=== PATIENT | male | born 1970 | race African-American/Black ===

== ENCOUNTER 2019-02-13 12:52 | Emergency (ER) | payer SELFPAY ==
--- NOTE | 2019-02-13 13:59 | ER Document Report ---
ED Medical Screen (RME) - General Chief Complaint: Abdominal Pain Stated Complaint: WEAKNESS Time Seen by Provider: 02/13/19 13:51 - HPI Notes: 02/13/19 13:57 Patient is a 48-year-old male with a history of diabetes, hypertension who presents complaining of right mid abdominal pain is been present for the past couple days but does not radiate. The pain is more dull in nature. Patient states that he has had a little frontal headache as well recently. Patient states that he has been able to eat and drink without difficulty, but does have occasional nausea without vomiting. He is urinating normally. Patient does report having one red bloody stool on Wednesday, but has not had a bowel movement since then. Patient states that this has happened previously and he has had multiple colonoscopies without any diagnosis. Last colonoscopy was 3 to 4 years ago. He was seen at another hospital in [place] yesterday, but they just performed a urine test on him and sent him home with nausea medicine as well as pain medicine. Denies TRAMMELL, fever, neck pain, URI, CP, SOB, dysuria, back pain, or rash. I have treated and performed a rapid initial assessment of this patient. A comprehensive ED assessment and evaluation of the patient, analysis of test results and completion of medical decision making process will be conducted by additional ED providers. PHYSICAL EXAMINATION: GENERAL: Well-appearing, well-nourished and in no acute distress. A&Ox4. Answers questions appropriately. LUNGS: Breath sounds clear to auscultation bilaterally and equal. No wheezes rales or rhonchi. HEART: Regular rate and rhythm without murmurs, rubs, gallops. ABDOMEN: Soft, nondistended abdomen. No guarding, no rebound. Normal bowel sounds present. No CVA tenderness bilaterally. Grossly nontender tenderness (cannot elicit thorough abd exam w/o bed, however). - Related Data Allergies/Adverse Reactions: No Known Allergies Allergy (Unverified 02/13/19 13:08) Past Medical History - Social History Chew tobacco use (# tins/day): No Frequency of alcohol use: None Drug Abuse: None Renal/ Medical History: Denies: Hx Peritoneal Dialysis Physical Exam - Vital signs Vitals: Temp Pulse Resp BP Pulse Ox 98.2 F 97 16 141/88 H 95 02/13/19 13:16 02/13/19 13:16 02/13/19 13:16 02/13/19 13:16 02/13/19 13:16 Course - Vital Signs Vital signs: Temp Pulse Resp BP Pulse Ox 98.2 F 97 16 141/88 H 95 02/13/19 13:16 02/13/19 13:16 02/13/19 13:16 02/13/19 13:16 02/13/19 13:16
[2019-02-13 14:48] LABS: ABSOLUTE BASOPHILS # (AUTO) 0.1 10^3/uL (0.0-0.2); ABSOLUTE EOSINOPHILS # (AUTO) 0.2 10^3/uL (0.0-0.6); ABSOLUTE LYMPHOCYTES (AUTO) 2.7 10^3/uL (0.5-4.7); ABSOLUTE MONOCYTES (AUTO) 0.5 10^3/uL (0.1-1.4); ABSOLUTE NEUT (AUTO) 5.7 10^3/uL (1.7-8.2); BASOPHILS % (AUTO) 0.6 % (0-2); EOSINOPHILS % (AUTO) 1.8 % (0-6); HEMATOCRIT 42.9 % (37.9-51.0); HEMOGLOBIN 14.1 g/dL (13.5-17.0); LYMPHOCYTES % (AUTO) 29.6 % (13-45); MEAN CORPUSCULAR HEMOGLOBIN 28.9 pg (27.0-33.4); MEAN CORPUSCULAR HGB CONC 32.8 g/dL (32.0-36.0); MEAN CORPUSCULAR VOLUME 88 fl (80-97); MONOCYTES % (AUTO) 5.7 % (3-13); PLATELET COUNT 250 10^3/uL (150-450); RED BLOOD COUNT 4.87 10^6/uL (4.35-5.55); RED CELL DISTRIBUTION WIDTH 13.3 % (11.5-14.0); SEGMENTED NEUTROPHILS % (AUTO) 62.3 % (42-78); TOTAL CELLS COUNTED % (AUTO) 100 %; WHITE BLOOD COUNT 9.1 10^3/uL (4.0-10.5)
[2019-02-13 14:58] LABS: INTERNATIONAL RATION (INR) 0.93; PROTHROMBIN TIME 12.5 SEC (11.4-15.4)
[2019-02-13 14:59] LABS: PARTIAL THROMBOPLASTIN TIME 30.5 SEC (23.5-35.8)
[2019-02-13 15:01] LABS: APPEARANCE,URINE CLEAR; BILIRUBIN,URINE NEGATIVE (NEGATIVE); COLOR,URINE YELLOW; GLUCOSE, URINE >=500 mg/dL (NEGATIVE); KETONES,URINE TRACE mg/dL (NEGATIVE); LEUKOCYTE ESTERASE,URINE NEGATIVE (NEGATIVE); NITRITE,URINE NEGATIVE (NEGATIVE); PROTEIN,URINE NEGATIVE (NEGATIVE); URINE SPECIFIC GRAVITY 1.037; UROBILINOGEN,URINE NEGATIVE mg/dL (<2.0)
[2019-02-13 15:16] LABS: ALANINE AMINOTRANSFERASE 24 U/L (21-72); ALBUMIN 4.6 g/dL (3.5-5.0); ALKALINE PHOSPHATASE 98 U/L (38-126); ANION GAP 10 (5-19); ASPARTATE AMINO TRANSFERASE 19 U/L (17-59); BILIRUBIN,DIRECT 0.3 mg/dL (0.0-0.4); BILIRUBIN,TOTAL 0.8 mg/dL (0.2-1.3); BLOOD UREA NITROGEN 13 mg/dL (7-20); CARBON DIOXIDE 29 mmol/L (22-30); CHLORIDE 100 mmol/L (98-107); GLUCOSE 257 mg/dL (75-110); POTASSIUM 4.4 mmol/L (3.6-5.0); TOTAL PROTEIN 7.8 g/dL (6.3-8.2)
--- NOTE | 2019-02-13 15:32 | ER Document Report ---
ED General - General Chief Complaint: Abdominal Pain Stated Complaint: WEAKNESS Time Seen by Provider: 02/13/19 13:51 Primary Care Provider: ALY MAZARIEGOS MD [ACTIVE STAFF] - Follow up in 3-5 days (or your primary care. Dr. Hughes. ) Notes: Patient is a 48-year-old male that presents to the emergency department for chief complaint of headache and abdominal pain. Patient states he started having pain a few days ago, is actually improved since then, but still persistent, he had associated nausea but no vomiting. States the pain is mainly on the right side of his abdomen, starting in the middle and going lower. He has not had much of an appetite over the weekend, he did go to a different emergency department, they only checked his urine, and then discharged him home. He states he had one episode of some blood in his stool, which concerned him as well as had that in the past, but is been some time. The headache he describes as a mild frontal headache, bilateral, and has been a 2 out of 10, and constant over the past few days. He denies having any blurred vision, changes in vision, numbness, tingling or weakness. Denies any seizure-like activity. No other complaints at this time. Past Medical History: Diabetes mellitus Past Surgical History: Denies abdominal surgery history Social History: Admits to smoking cigarettes, but denies alcohol or drug use. Primary care is Dr. Hughes. Family History: Reviewed and noncontributory for presenting illness Allergies: Reviewed, see documented allergy list. REVIEW OF SYSTEMS: Other than noted above, the 12 point review of systems was reviewed with the patient and were negative, all pertinent findings are included in the HPI. PHYSICAL EXAMINATION: Vital signs reviewed, nursing noted reviewed. GENERAL: Well-appearing, well-nourished and in no acute distress. HEAD: Atraumatic, normocephalic. EYES: Eyes appear normal, extraocular movements intact, sclera anicteric, conjunctiva are normal. PERRLA ENT: nares patent, oropharynx clear without exudates. Moist mucous membranes. NECK: Normal range of motion, supple without lymphadenopathy LUNGS: Breath sounds clear to auscultation bilaterally and equal. No wheezes rales or rhonchi. HEART: Regular rate and rhythm without murmurs ABDOMEN: Soft, nontender, normoactive bowel sounds. No rebound, guarding, or rigidity. No masses appreciated. EXTREMITIES: Nontender, good range of motion, no pitting or edema. NEUROLOGICAL: No focal neurological deficits. Moves all extremities spontaneously Motor and sensory grossly intact on exam. PSYCH: Normal mood, normal affect. SKIN: Warm, Dry, normal turgor, no rashes or lesions noted on exposed skin - Related Data Allergies/Adverse Reactions: No Known Allergies Allergy (Unverified 02/13/19 13:08) Past Medical History - Social History Smoking Status: Current Every Day Smoker Chew tobacco use (# tins/day): No Frequency of alcohol use: None Drug Abuse: None Family History: Reviewed & Not Pertinent Patient has suicidal ideation: No Patient has homicidal ideation: No Renal/ Medical History: Denies: Hx Peritoneal Dialysis Physical Exam - Vital signs Vitals: Temp Pulse Resp BP Pulse Ox 98.2 F 97 16 141/88 H 95 02/13/19 13:16 02/13/19 13:16 02/13/19 13:16 02/13/19 13:16 02/13/19 13:16 Course - Re-evaluation Re-evalutation: Patient seen and examined vital signs reviewed. Laboratory data and/or imaging were ordered as appropriate for the patient's presenting symptoms and complaint, with consideration of any critical or life threatening conditions that may be associated with their obtained history and exam as noted above. Patient was treated with IV fluids and Reglan Results were reviewed when available and demonstrated elevated lipase, over 1000, with a negative CT, blood work was otherwise unremarkable, no acidosis, no leukocytosis The patient was re-evaluated and was stable, asymptomatic, headache it resolved Evaluation was most consistent with abdominal pain, pancreatitis, however I feel the patient can be discharged home, he is tolerating p.o., appears well, I suspect that the patient possibly passed a gallstone, given elevation in the lipase, but no leukocytosis, no LFT elevation, patient appears well, and feel he can be discharged home at this point, given prescriptions for Zofran and [place] to take if needed for nausea and pain, I informed him of his incidental findings of pulmonary nodules on his CT imaging, patient was given copy of the report, advised to follow-up with his primary care to have repeat testing in 6 months. Results were discussed with the patient at this point, after careful consideration I feel that that patient can be discharged from the emergency department, the patient was educated treatments and reasons to return to the emergency department based on their presumed diagnosis as noted above, they were advised to followup with a primary care physician in 2-3 days. Patient was agreeable to plan of care. *Note is created using voice recognition software and may contain spelling, syntax or grammatical errors. Laboratory 02/13/19 02/13/19 02/13/19 14:27 14:27 14:27 WBC 9.1 RBC 4.87 Hgb 14.1 Hct 42.9 MCV 88 MCH 28.9 MCHC 32.8 RDW 13.3 Plt Count 250 Seg Neutrophils % 62.3 Lymphocytes % 29.6 Monocytes % 5.7 Eosinophils % 1.8 Basophils % 0.6 Absolute Neutrophils 5.7 Absolute Lymphocytes 2.7 Absolute Monocytes 0.5 Absolute Eosinophils 0.2 Absolute Basophils 0.1 PT 12.5 INR 0.93 APTT 30.5 Sodium 139.3 Potassium 4.4 Chloride 100 Carbon Dioxide 29 Anion Gap 10 BUN 13 Creatinine 1.05 Est GFR ( Amer) > 60 Est GFR (Non-Af Amer) > 60 Glucose 257 H POC Glucose Calcium 10.0 Total Bilirubin 0.8 Direct Bilirubin 0.3 Neonat Total Bilirubin Not Reportable Neonat Direct Bilirubin Not Reportable Neonat Indirect Bili Not Reportable AST 19 ALT 24 Alkaline Phosphatase 98 Total Protein 7.8 Albumin 4.6 Lipase 1424.4 H Urine Color Urine Appearance Urine pH Ur Specific [place] Urine Protein Urine Glucose (UA) Urine Ketones Urine Blood Urine Nitrite Urine Bilirubin Urine Urobilinogen Ur Leukocyte Esterase Urine WBC (Auto) Urine RBC (Auto) Urine Bacteria (Auto) Squamous Epi Cells Auto Urine Ascorbic Acid 02/13/19 02/13/19 14:27 14:28 WBC RBC Hgb Hct MCV MCH MCHC RDW Plt Count Seg Neutrophils % Lymphocytes % Monocytes % Eosinophils % Basophils % Absolute Neutrophils Absolute Lymphocytes Absolute Monocytes Absolute Eosinophils Absolute Basophils PT INR APTT Sodium Potassium Chloride Carbon Dioxide Anion Gap BUN Creatinine Est GFR ( Amer) Est GFR (Non-Af Amer) Glucose POC Glucose 236 H Calcium Total Bilirubin Direct Bilirubin Neonat Total Bilirubin Neonat Direct Bilirubin Neonat Indirect Bili AST ALT Alkaline Phosphatase Total Protein Albumin Lipase Urine Color YELLOW Urine Appearance CLEAR Urine pH 6.0 Ur Specific [place] 1.037 Urine Protein NEGATIVE Urine Glucose (UA) >=500 H Urine Ketones TRACE H Urine Blood NEGATIVE Urine Nitrite NEGATIVE Urine Bilirubin NEGATIVE Urine Urobilinogen NEGATIVE Ur Leukocyte Esterase NEGATIVE Urine WBC (Auto) 4 Urine RBC (Auto) 1 Urine Bacteria (Auto) TRACE Squamous Epi Cells Auto 2 Urine Ascorbic Acid 40 H Abdomen/Pelvis CT 02/13/19 15:33 IMPRESSION: 1. NO SIGNIFICANT OR ACUTE FINDING IN THE ABDOMEN OR PELVIS ON CT SCAN WITH IV CONTRAST. 2. SMALL PULMONARY NODULES DESCRIBED, MEASURING 3 TO 4 MM. THESE ARE NONSPECIFIC AND COULD BE GRANULOMAS ALTHOUGH OTHER ETIOLOGIES ARE POSSIBLE. IF THE PATIENT HAS HAD PRIOR IMAGING ELSEWHERE, WOULD RECOMMEND CORRELATION TO DETERMINE IF THESE HAVE BEEN PREVIOUSLY EVALUATED. IF THERE HAS BEEN NO PRIOR IMAGING, MAY CONSIDER FOLLOW-UP CT OF THE CHEST FOR MORE COMPLETE EVALUATION. - Vital Signs Vital signs: Temp Pulse Resp BP Pulse Ox 98.5 F 91 16 131/97 H 98 02/13/19 17:15 02/13/19 17:15 02/13/19 13:16 02/13/19 17:15 02/13/19 17:15 - Laboratory Result Diagrams: 02/13/19 14:27 02/13/19 14:27 Laboratory results interpreted by me: 02/13/19 02/13/19 02/13/19 14:27 14:27 14:28 Glucose 257 H POC Glucose 236 H Lipase 1424.4 H Urine Glucose (UA) >=500 H Urine Ketones TRACE H Urine Ascorbic Acid 40 H Discharge - Discharge Clinical Impression: Pulmonary nodule Pancreatitis Qualifiers: Chronicity: acute Pancreatitis type: unspecified pancreatitis type Acute pancreatitis complication: unspecified Qualified Code(s): K85.90 - Acute pancreatitis without necrosis or infection, unspecified Condition: Stable Disposition: HOME, SELF-CARE Instructions: Pancreatitis ([facility]) Additional Instructions: Please stick to a mild diet, with broth, clear liquids over the next 24 hours, and slowly advance it up to a more regular diet over the next 3 days, even prescribed a pain medication and a nausea medicine to take only if needed. And please follow-up with your primary care regarding the incidental pulmonary nodules that were noted on your CAT scan, recommend repeat CT in 6 months, you have been given a copy of these results. Prescriptions: Hydrocodone/Acetaminophen [[place] 5-325 Tablet] 1 each PO Q6H PRN #12 tablet PRN Reason: abdominal pain Ondansetron [Zofran Odt 4 mg Tablet] 1 tab PO Q8H PRN #15 tab.rapdis PRN Reason: For Nausea/Vomiting Forms: Return to Work Referrals: ALY MAZARIEGOS MD [ACTIVE STAFF] - Follow up in 3-5 days (or your primary care. Dr. Hughes. )
[2019-02-13] MEDS ORDERED: METOCLOPRAMIDE HCL INJ/PF 10 MG/2 ML SDV IV ONE (15:45)
[2019-02-13] MEDS ORDERED: NORMAL SALINE 1000 ML 1,000 ML IV ONE (15:45)
--- NOTE | 2019-02-13 16:37 | RADIOLOGY REPORT (SQ) ---
EXAM DESCRIPTION: CT ABD/PELVIS WITH IV ONLY COMPLETED DATE/TIME: 02/13/2019 4:14 pm REASON FOR STUDY: right sided abdominal pain COMPARISON: None. TECHNIQUE: CT scan of the abdomen and pelvis performed using helical scanning technique with dynamic intravenous contrast injection. No oral contrast. Images reviewed with lung, soft tissue, and bone windows. Reconstructed coronal and sagittal MPR images reviewed. Delayed images for evaluation of the urinary system also acquired. All images stored on PACS. All CT scanners at this facility use dose modulation, iterative reconstruction, and/or weight based d osing when appropriate to reduce radiation dose to as low as reasonably achievable (ALARA). [facility]: Dose Right [facility]: CareDose [facility]: Dose Right [facility]: Teradose 4D [facility]: FORVM CONTRAST TYPE AND DOSE: contrast/concentration: Isovue 350.00 mg/ml; Total Contrast Delivered: 100.0 ml; Total Saline Delivered: 72.0 ml RENAL FUNCTION: BUN 13 creatinine 1.05. RADIATION DOSE: CT Rad equipment meets quality standard of care and radiation dose reduction techniq ues were employed. CTDIvol: 16.7 - 20.0 mGy. DLP: 2087 mGy-cm.. LIMITATIONS: None. FINDINGS: LOWER CHEST: There are small pulmonary nodules in the anterior right middle lobe, measurin g 3 and 4 mm. These are noncalcified. Otherwise the lung bases are clear. No infiltrates. No pleu ral effusion. LIVER: Normal size. No masses. No dilated ducts. SPLEEN: Normal size. No focal lesions. PANCREAS: No masses. No significant calcifications. No adjacent inflammation or peripancreatic fluid collections. Pancreatic duct not dilated. GALLBLADDER: No identified stones by CT criteria. No inflammatory changes to suggest cholecystitis. ADRENAL GLANDS: No significant masses or asymmetry. RIGHT KIDNEY AND URETER: No solid masses. No significant calcifications. No hydronephrosis or hyd roureter. LEFT KIDNEY AND URETER: No solid masses. No significant calcifications. No hydronephrosis or hydr oureter. AORTA AND VESSELS: No aneurysm. No dissection. Renal arteries, SMA, celiac without stenosis. RETROPERITONEUM: No retroperitoneal adenopathy, hemorrhage or masses. BOWEL AND PERITONEAL CAVITY: No masses or inflammatory changes. No free fluid or peritoneal masses. APPENDIX: Normal. PELVIS: No mass. No free fluid. Normal bladder. ABDOMINAL WALL: No masses. No hernias. BONES: No significant or acute findings. OTHER: No other significant finding. IMPRESSION: 1. NO SIGNIFICANT OR ACUTE FINDING IN THE ABDOMEN OR PELVIS ON CT SCAN WITH IV CONTRAST. 2. SMALL PULMONARY NODULES DESCRIBED, MEASURING 3 TO 4 MM. THESE ARE NONSPECIFIC AND COULD BE GRA NULOMAS ALTHOUGH OTHER ETIOLOGIES ARE POSSIBLE. IF THE PATIENT HAS HAD PRIOR IMAGING ELSEWHERE, YOLIE Everett RECOMMEND CORRELATION TO DETERMINE IF THESE HAVE BEEN PREVIOUSLY EVALUATED. IF THERE HAS BEEN NO P RIOR IMAGING, MAY CONSIDER FOLLOW-UP CT OF THE CHEST FOR MORE COMPLETE EVALUATION. TECHNICAL DOCUMENTATION: JOB ID: [id number] Quality ID # [id number]: Final reports with documentation of one or more dose reduction techniques (e.g., Au tomated exposure control, adjustment of the mA and/or kV according to patient size, use of iterative reconstruction technique) 2010 [employer]- All Rights Reserved Reading location - IP/workstation name: [email or web address]
[2019-02-13 17:23] VITALS: BP 131/97
== END 2019-02-13 17:22 | disposition home or self-care (01) ==
LOC: ER 12:52
DX: K85.90 Acute pancreatitis without necrosis or infection, unspecified (principal); R91.1 Solitary pulmonary nodule; R10.9 Unspecified abdominal pain; R51 Headache; R11.0 Nausea; F17.200 Nicotine dependence, unspecified, uncomplicated
CPT/HCPCS: 99285; 96374; 36415; 82962; 83690; 85025; 85610; 85730; 80053; 81001; 74177; J2765; J7030; 96361